=== PATIENT | female | born 1965 | race Caucasian/White ===

== ENCOUNTER 2018-08-21 01:44 | Observation (INO) ==
[2018-08-21] MEDS ORDERED: ONDANSETRON 4 MG/2 ML VIAL IV ONE ×2 (01:52→14:30)
[2018-08-21] MEDS ORDERED: ASPIRIN 81 MG TAB.CHEW CHEWED ONE (01:52)
[2018-08-21] MEDS: NITROGLYCERIN 0.4 MG TAB.SUBL SL PRN ×2 (01:58→02:04)
[2018-08-21] MEDS ORDERED: PHENobarb/HYOSCY/ATROPINE/SCOP 1 DOSE BOTTLE PO ONE (02:20)
[2018-08-21] MEDS ORDERED: PANTOPRAZOLE 40 MG VIAL IV ONE (02:20)
[2018-08-21 02:38] LABS: Basophils # (Auto) 0.1 K/mcL (0.0-0.3); Eosinophils # (Auto) 0.6 K/mcL (0.0-0.7); Eosinophils % (Auto) 5.7 % (0.0-7.0); Granulocytes % (Auto) 42.4 % (38.0-78.0); Lymphocytes # (Auto) 4.2 K/mcL (1.5-4.8); Mean Cell Volume 91.1 fL (80.0-100.0); Mean Corpuscular HGB Conc 32.2 g/dL (31.0-36.0); Monocytes # (Auto) 0.9 K/mcL (0.1-0.9); Monocytes % (Auto) 8.9 % (1.0-12.0); Platelet Count 331 K/mcL (140-440); Red Cell Distribution Width 14.5 % (11.5-14.5)
[2018-08-21 02:55] LABS: ALT/SGPT 16 U/l (0-40); Albumin 4.3 gm/dL (3.2-5.2); Albumin/Globulin Ratio 1.7 (1.0-2.3); Alkaline Phosphatase 86 U/L (39-117); Blood Urea Nitrogen 14 mg/dl (6-20); Creatine Kinase 36 IU/L (24-170); Creatine Kinase MB 1.2 ng/ml (0-2.9); Myoglobin < 25 ng/ml (25-58)
--- NOTE | 2018-08-21 04:45 | XRay Report ---
INDICATION: Chest pain TECHNIQUE: AP chest x-ray,portable semiupright COMPARISON: Previous examination dated 03/09/2016 FINDINGS:Small left basilar parenchymal density consistent with atelectasis. Lungs are otherwise negative. No parenchymal infiltrate. No pulmonary parenchymal mass. Heart size and vascularity are normal. No pulmonary edema or pulmonary congestion. Alejandra and mediastinum are negative. No significant interval change IMPRESSION: 1. Negative AP portable chest x-ray 2. No significant interval change since 03/09/2016 Interpreted and Authenticated by: Lai Bañuelos 08/21/18
--- NOTE | 2018-08-21 06:34 | Emergency Department Note ---
General Adult HPI - General Chief complaint: Chest Pain Stated complaint: chest pain Time Seen by Provider: 08/21/18 02:15 Source: patient Mode of arrival: ambulatory Limitations: no limitations - History of Present Illness HPI Narrative: This patient was awakened during the night with epigastric pain that radiated a little bit up into the chest and into the back. Seem to be a sudden onset. She does still have her gallbladder and no history of cardiac disease. No shortness of breath slight nausea. - Related Data Home Medications Medication Instructions Recorded Confirmed aspirin 81 mg tablet,delayed 81 mg PO QDAY 08/13/15 08/21/18 release diatomaceous earth 1 tsp PO QDAY 08/13/15 09/21/17 cholecalciferol (vitamin D3) 2,000 2,000 unit PO QDAY cap 11/06/15 08/21/18 unit capsule B-complex with vitamin C capsule 1 cap PO QDAY 05/03/17 09/21/17 Magnesium Oxide [Magnesium] 250 mg PO DAILY 08/21/18 08/21/18 Potassium 99 mg PO DAILY 08/21/18 08/21/18 Previous Rx's Medication Instructions Recorded Bilateral carpal tunnel braces #1 each 08/13/15 lorazepam 1 mg tablet 1 mg PO BID PRN #30 tab 09/01/16 hydrocodone 5 mg-acetaminophen 325 1 tab PO BID PRN #60 tab 09/06/17 mg tablet epinephrine 0.3 mg/0.3 mL 0.3 mg IM Q10-15M PRN #2 each 09/21/17 injection, auto-injector rosuvastatin 5 mg tablet 5 mg PO QDAY #60 tab 09/21/17 Synthroid 125 mcg tablet 125 mcg PO QDAY #90 tab NS 10/06/17 omeprazole 20 mg capsule,delayed 20 mg PO QDAY #90 cap 12/26/17 release Allergies Allergy/AdvReac Type Severity Reaction Status Date / Time pecan nut Allergy Severe Anaphylaxis Verified 09/21/17 08:05 walnut Allergy Severe Anaphylaxis Verified 09/21/17 08:05 brazil nut Allergy Severe Anaphylaxis Uncoded 07/27/16 15:11 Review of Systems All systems ED: reviewed and negative except as stated. Past Medical History - Past Medical History Medical history: Reports: GERD, hypertension, thyroid disease, other (Spondylolisthesis) OUTSOLE CASER history: Reports: non-contributory Surgical history ED: Reports: , other (Low back surgery, ovarian cystectomy, bladder mesh repair) - Social History smoking status: Current every day smoker Alcohol use: Reports: None Drug use: Reports: none Physical Exam Limitations: no limitations General appearance: alert Head: atraumatic Eye: Present: normal appearance ENT: normal exam Neck: Present: normal inspection Chest: Present: normal inspection Respiratory: Present: normal lung sounds bilaterally Cardiovascular: Present: regular rate, normal rhythm, normal heart sounds Abdominal: Present: soft, tenderness. Absent: distention, guarding, rebound, rigidity Abdominal tenderness: Present: epigastrium, moderate Neurological: Present: alert Psychiatric: Present: normal affect Skin: Present: warm, dry Course Vital Signs Temperature 97.6 F 08/21/18 01:44 Pulse Rate 65 08/21/18 01:44 Respiratory Rate 24 H 08/21/18 01:44 Pulse Oximetry (%) 100 08/21/18 01:44 Temperature 97.6 F 08/21/18 01:44 Pulse Rate 63 08/21/18 06:46 Respiratory Rate 14 08/21/18 06:46 Blood Pressure 119/71 08/21/18 06:46 Pulse Oximetry (%) 98 08/21/18 06:46 Medical Decision Making - [facility] Narrative Medical decision making narrative: This patient's troponins were negative she does have cholecystitis on her ultrasound and will be admitted per Dr. Shukla. - Lab Data Lab results reviewed: Yes I reviewed the patient's lab results. Result diagrams: 08/21/18 01:59 08/21/18 01:59 Lab Results 08/21/18 08/21/18 08/21/18 Range/Units 01:59 01:59 01:59 WBC 10.0 (4.5-11.0) K/mcL RBC 4.90 (4.00-5.20) M/mcL Hgb 14.4 (12.0-15.0) g/dL Hct 44.6 (36.0-48.0) % MCV 91.1 (80.0-100.0) fL MCH 29.4 (26.0-34.0) pg MCHC 32.2 (31.0-36.0) g/dL RDW 14.5 (11.5-14.5) % Plt Count 331 (140-440) K/mcL MPV 7.9 (7.4-10.4) fL Gran % 42.4 (38.0-78.0) % Lymph % (Auto) 42.0 (15.5-49.0) % Meade % (Auto) 8.9 (1.0-12.0) % Eos % (Auto) 5.7 (0.0-7.0) % Baso % (Auto) 1.0 (0.0-2.0) % Gran # 4.2 (1.8-8.0) K/mcL Lymph # (Auto) 4.2 (1.5-4.8) K/mcL Meade # (Auto) 0.9 (0.1-0.9) K/mcL Eos # (Auto) 0.6 (0.0-0.7) K/mcL Baso # (Auto) 0.1 (0.0-0.3) K/mcL Sodium 142 (133-145) mmol/L Potassium 3.8 (3.3-5.1) mmol/L Chloride 104 (96-108) mmol/L Carbon Dioxide 26 (22-30) mmol/L Anion Gap 12.0 (8-16) BUN 14 (6-20) mg/dl Creatinine 0.7 (0.6-1.1) mg/dl GFR Calculation 98 Glucose 104 (70-105) mg/dL Calcium 9.2 (8.6-10.4) mg/dl Total Bilirubin 0.2 (0.0-1.0) mg/dL AST 14 (0-37) U/l ALT 16 (0-40) U/l Alkaline Phosphatase 86 (39-117) U/L Total Creatine Kinase 36 (24-170) IU/L CK-MB (CK-2) 1.2 (0-2.9) ng/ml Myoglobin < 25 L (25-58) ng/ml Troponin T < 0.01 (0-0.03) ng/ml Total Protein 6.9 (5.9-8.4) gm/dL Albumin 4.3 (3.2-5.2) gm/dL Globulin 2.6 (2.2-3.7) gm/dL Albumin/Globulin Ratio 1.7 (1.0-2.3) Lipase (7-60) U/L 08/21/18 08/21/18 08/21/18 Range/Units 01:59 02:00 04:20 WBC (4.5-11.0) K/mcL RBC (4.00-5.20) M/mcL Hgb (12.0-15.0) g/dL Hct (36.0-48.0) % MCV (80.0-100.0) fL MCH (26.0-34.0) pg MCHC (31.0-36.0) g/dL RDW (11.5-14.5) % Plt Count (140-440) K/mcL MPV (7.4-10.4) fL Gran % (38.0-78.0) % Lymph % (Auto) (15.5-49.0) % Meade % (Auto) (1.0-12.0) % Eos % (Auto) (0.0-7.0) % Baso % (Auto) (0.0-2.0) % Gran # (1.8-8.0) K/mcL Lymph # (Auto) (1.5-4.8) K/mcL Meade # (Auto) (0.1-0.9) K/mcL Eos # (Auto) (0.0-0.7) K/mcL Baso # (Auto) (0.0-0.3) K/mcL Sodium (133-145) mmol/L Potassium (3.3-5.1) mmol/L Chloride (96-108) mmol/L Carbon Dioxide (22-30) mmol/L Anion Gap (8-16) BUN (6-20) mg/dl Creatinine (0.6-1.1) mg/dl GFR Calculation Glucose (70-105) mg/dL Calcium (8.6-10.4) mg/dl Total Bilirubin (0.0-1.0) mg/dL AST (0-37) U/l ALT (0-40) U/l Alkaline Phosphatase (39-117) U/L Total Creatine Kinase (24-170) IU/L CK-MB (CK-2) 1.2 (0-2.9) ng/ml Myoglobin (25-58) ng/ml Troponin T < 0.01 (0-0.03) ng/ml Total Protein (5.9-8.4) gm/dL Albumin (3.2-5.2) gm/dL Globulin (2.2-3.7) gm/dL Albumin/Globulin Ratio (1.0-2.3) Lipase 69 H (7-60) U/L - Radiology Data Radiology results reviewed: Yes I reviewed the patient's radiology results. Disposition Pt seen by RAILROAD WHEELS AND AXLE INSPECTOR/PA only: No Clinical Impression: Cholecystitis Disposition: Xfer As Outpt/Obs ([facility]) Condition: Good Referrals: Shayne Vargas MD [Primary Care Provider] - Time of Disposition: 08:21
[2018-08-21] MEDS ORDERED: PIPERACILLIN SODIUM/TAZOBACTAM 3.375 GM in DEXTROSE 5% IN WATER 50 ML IV ONE (08:20)
[2018-08-21] MEDS ORDERED: LACTATED RINGERS 1,000 ML IV SCH (09:30)
--- NOTE | 2018-08-21 09:33 | Ultrasound Report ---
CLINICAL INFORMATION: elevated lipase and epi gastric pain COMPARISON: None. FINDINGS: Multiple stones within the gallbladder range up to 12 mm. The gallbladder wall is equivocally thickened: 3.1 mm. No focal tenderness of the gallbladder, however. Common bile duct is dilated: 9 mm. The distal CBD is not visualized, thus choledocholithiasis is not excluded.. Liver and pancreas are normal in size configuration and echotexture. No free fluid IMPRESSION: Cholelithiasis and mild gallbladder wall thickening suggesting cholecystitis. Mild dilatation of common bile duct is noted choledocholithiasis is possible: The distal CBD is not visualized Interpreted and Authenticated by: Lai Rosas 08/21/18
--- NOTE | 2018-08-21 12:22 | General Surg History&Physical ---
History of Present Illness Patient information: Note initiated : 08/21/18 at 12:20 pm Service Date, if different from initiated Date: [] Patient: Nisreen Contreras a 53 y/o F admitted on 08/21/18 for Chest Pain . Chief Complaint: [53-year-old female admitted with cholecystitis with cholelithiasis. The patient was awakened at midnight with severe mid substernal chest pain. She tried some [id number] remedies without improvement. The pain became worse and she was seen in the emergency room. Cardiac enzymes were negative and EKG was unremarkable. She had upper abdominal ultrasound, which shows gallstones and sludge. Her white blood count and liver panel were normal. Her pain was difficult to control, so she is admitted. She remains symptomatic and has persistent tenderness. Patient is counseled for laparoscopic cholecystectomy.] HPI: Ms. Contreras is a 53 year old F Review of Systems - Gastrointestinal abdominal pain, cramping, dyspepsia, nausea - Musculoskeletal back pain, myalgias Past History Past medical history: Mild depression with anxiety Hypothyroidism. Degenerative disc disease. Migraine headaches. Gastroesophageal reflux disease Past surgical history: Lumbar disc surgery with fusion 2014 2. Hysterectomy. Oophorectomy Past family history: Breast cancer. Diabetes mellitus. Hypertension. Coronary artery disease Past social history: Tobacco use one half pack per day. Frequent alcohol use. Denies drug use Medications and Allergies Home Medications Medication Instructions Recorded Confirmed Type Bilateral carpal tunnel braces #1 each 08/13/15 09/21/17 Rx aspirin 81 mg tablet,delayed 81 mg PO QDAY 08/13/15 08/21/18 History release diatomaceous earth 1 tsp PO QDAY 08/13/15 09/21/17 History cholecalciferol (vitamin D3) 2,000 2,000 unit PO QDAY cap 11/06/15 08/21/18 History unit capsule lorazepam 1 mg tablet 1 mg PO BID PRN #30 tab 09/01/16 08/21/18 Rx B-complex with vitamin C capsule 1 cap PO QDAY 05/03/17 09/21/17 History hydrocodone 5 mg-acetaminophen 325 1 tab PO BID PRN #60 tab 09/06/17 08/21/18 Rx mg tablet epinephrine 0.3 mg/0.3 mL 0.3 mg IM Q10-15M PRN #2 each 09/21/17 08/21/18 Rx injection, auto-injector rosuvastatin 5 mg tablet 5 mg PO QDAY #60 tab 09/21/17 08/21/18 Rx Synthroid 125 mcg tablet 125 mcg PO QDAY #90 tab NS 10/06/17 08/21/18 Rx omeprazole 20 mg capsule,delayed 20 mg PO QDAY #90 cap 12/26/17 08/21/18 Rx release Magnesium Oxide [Magnesium] 250 mg PO DAILY 08/21/18 08/21/18 History Potassium 99 mg PO DAILY 08/21/18 08/21/18 History Allergies Allergy/AdvReac Type Severity Reaction Status Date / Time pecan nut Allergy Severe Anaphylaxis Verified 09/21/17 08:05 walnut Allergy Severe Anaphylaxis Verified 09/21/17 08:05 brazil nut Allergy Severe Anaphylaxis Uncoded 07/27/16 15:11 Exam Temp Pulse Resp BP Pulse Ox 98.3 F 78 20 132/76 98 08/21/18 11:02 08/21/18 09:16 08/21/18 11:02 08/21/18 11:02 08/21/18 11:02 - General physical appearance well developed, well nourished, no distress - Eyes PERRL, normal ocular movement. negative: icteric - ENT normal pinna, normal nares, normal mucosa, no hearing loss, no congestion - Head Head exam IM: Present: atraumatic, normocephalic - Neck no masses, no bruits, trachea midline, no lymphadenopathy, no venous distension - Cardiovascular Cardiovascular exam IM: Present: normal rate and rhythm, RRR, +S1, +S2. Absent: gallop, JVD, tachycardia - Respiratory normal expansion, normal respiratory effort, clear to auscultation - Abdomen Abdomen: Present: soft, tender (epigastric and right upper quadrant tenderness), bowel sounds Hernia: Present: none - Genitourinary Present: normal external genitalia - Integumentary Present: no rash, no growths, no abnormal pigmentation - Neurologic Present: normal coordination, normal sensation - Musculoskeletal Present: normal gait, normal posture - Psychiatric Present: oriented to time, oriented to person, oriented to place, speech is normal, memory intact Assessment and Plan (1) Cholelithiasis with cholecystitis without obstruction Patient counseled for laparoscopic cholecystectomy. It will be performed later today Status: Acute (2) Depression Status: Acute (3) Migraine Status: Chronic (4) Herniated intervertebral disc Status: Chronic Comment: without myelopathy 4/5 and 5/6 (5) Acid reflux Status: Chronic Qualifiers: Esophagitis presence: esophagitis presence not specified Qualified Code(s): K21.9 - Gastro-esophageal reflux disease without esophagitis
[2018-08-21] MEDS ORDERED: PIPERACILLIN SODIUM/TAZOBACTAM 3.375 GM in DEXTROSE 5% IN WATER 50 ML IV SCH (13:00)
[2018-08-21] MEDS ORDERED: ROCURONIUM 10 MG/ML ML IV ONE (14:30)
[2018-08-21] MEDS ORDERED: fentaNYL 250 MCG/5 ML VIAL IV ONE (14:30)
[2018-08-21] MEDS ORDERED: LIDOCAINE HCL/PF 100 MG/5 ML SYRINGE IV ONE (14:30)
[2018-08-21] MEDS ORDERED: DEXAMETHASONE 10 MG/ML VIAL IV ONE (14:30)
[2018-08-21] MEDS ORDERED: MIDAZOLAM 5 MG/5 ML VIAL IV ONE (14:30)
[2018-08-21] MEDS ORDERED: PROPOFOL 200 MG/20 ML VIAL IV ONE (14:30)
[2018-08-21] MEDS ORDERED: SUCCINYLCHOLINE 20 MG/ML ML IV ONE (14:30)
[2018-08-21] MEDS ORDERED: METHOCARBAMOL 1,000 MG/10 ML VIAL IV PRN (14:56)
[2018-08-21] MEDS ORDERED: MEPERIDINE 25 MG/ML SYRINGE IV PRN (14:56)
[2018-08-21] MEDS ORDERED: ONDANSETRON 4 MG/2 ML VIAL IV PRN ×2 (14:56→16:25)
[2018-08-21] MEDS ORDERED: PROMETHAZINE 25 MG/ML VIAL IV PRN ×2 (14:56→16:25)
[2018-08-21] MEDS ORDERED: NALOXONE HCL 0.4 MG/ML VIAL IV PRN (14:56)
[2018-08-21] MEDS ORDERED: fentaNYL 100 MCG/2 ML VIAL IV PRN (14:56)
[2018-08-21] MEDS ORDERED: ATROPINE SULFATE 0.4 MG/ML VIAL IV PRN (14:56)
[2018-08-21] MEDS ORDERED: PROMETHAZINE 25 MG/ML VIAL IM PRN (14:56)
[2018-08-21] MEDS ORDERED: diphenhydrAMINE 50 MG/ML VIAL IV PRN (14:56)
[2018-08-21] MEDS ORDERED: IPRATROPIUM/ALBUTEROL 3 ML AMPUL.NEB NEB PRN (14:56)
[2018-08-21] MEDS ORDERED: MEPERIDINE 50 MG/ML INJECTION IM PRN (14:56)
[2018-08-21] MEDS ORDERED: FLUMAZENIL 0.1 MG/ML ML IV PRN (14:56)
[2018-08-21] MEDS ORDERED: METOPROLOL TARTRATE 5 MG/5 ML VIAL IV PRN (14:56)
[2018-08-21] MEDS ORDERED: ePHEDrine 50 MG/ML AMPUL IV PRN (14:56)
[2018-08-21] MEDS ORDERED: ACETAMINOPHEN 1,000 MG/100 ML BOTTLE IV ONE (14:56)
--- NOTE | 2018-08-21 15:41 | Brief Operative Note ---
Date of procedure: 08/21/18 Pre-op diagnosis: ACUTE CHOLECYSTITIS WITH CHOLELITHIASIS Post-op diagnosis: other (ACUTE CHOLECYSTITIS WITH CHOLELITHIASIS) Procedure: LAPAROSCOPIC CHOLECYSTECTOMY Grafts/Implants: No Anesthesia: GETA Findings: ACUTE SEVERE INFLAMMATION OF GALLBLADDER WITH OBSTRUCTION OF CYSTIC DUCT Complications: none Surgeon: Tiffany Shukla Estimated blood loss (cc): 30 Specimens Removed/Pathology: other (GALLBLADDER) Disposition: PACU
[2018-08-21] MEDS ORDERED: LORazepam 1 MG TABLET PO PRN (16:25)
[2018-08-21] MEDS: HYDROmorphone 2 MG/ML VIAL IV PRN ×3 (17:43→23:24)
[2018-08-21] MEDS: PIPERACILLIN SODIUM/TAZOBACTAM 3.375 GM in DEXTROSE 5% IN WATER 50 ML IV SCH ×2 (18:24→23:24)
[2018-08-21] MEDS: ACETAMINOPHEN 1,000 MG in PREMIX 1 BAG IV SCH (21:13)
[2018-08-21] MEDS: 0.9 % SODIUM CHLORIDE 10 ML SYRINGE IV SCH (21:20)
[2018-08-22] MEDS: HYDROmorphone 2 MG/ML VIAL IV PRN ×3 (03:43→11:46)
[2018-08-22] MEDS: ACETAMINOPHEN 1,000 MG in PREMIX 1 BAG IV SCH ×5 (03:43→16:04)
[2018-08-22] MEDS ORDERED: ACETAMINOPHEN 1,000 MG/100 ML BOTTLE IV ONE ×3 (03:45→15:59)
[2018-08-22] MEDS: 0.9 % SODIUM CHLORIDE 10 ML SYRINGE IV SCH ×2 (05:09→12:30)
[2018-08-22] MEDS: PIPERACILLIN SODIUM/TAZOBACTAM 3.375 GM in DEXTROSE 5% IN WATER 50 ML IV SCH ×2 (05:09→11:46)
[2018-08-22 05:35] LABS: Basophils # (Auto) 0 K/mcL (0.0-0.3); Basophils % (Auto) 0.4 % (0.0-2.0); Eosinophils # (Auto) 0 K/mcL (0.0-0.7); Eosinophils % (Auto) 0 % (0.0-7.0); Granulocytes % (Auto) 82.3 % (38.0-78.0); Lymphocytes # (Auto) 1.1 K/mcL (1.5-4.8); Lymphocytes % (Auto) 10.6 % (15.5-49.0); Mean Cell Volume 90.8 fL (80.0-100.0); Mean Corpuscular HGB Conc 32.8 g/dL (31.0-36.0); Monocytes # (Auto) 0.7 K/mcL (0.1-0.9); Monocytes % (Auto) 6.7 % (1.0-12.0); Platelet Count 249 K/mcL (140-440); RBC 4.18 M/mcL (4.00-5.20)
[2018-08-22 05:57] LABS: ALT/SGPT 291 U/l (0-40); Albumin 3.6 gm/dL (3.2-5.2); Albumin/Globulin Ratio 1.6 (1.0-2.3); Alkaline Phosphatase 115 U/L (39-117); Bilirubin,Direct < 0.2 mg/dL (0.0-0.3); Blood Urea Nitrogen 7 mg/dl (6-20); Gamma Glutamyl Transpeptidase 84 U/L (5-36); Uric Acid 2.1 mg/dL (2.5-8.0)
[2018-08-22] MEDS ORDERED: LEVOTHYROXINE 125 MCG TABLET PO SCH (07:30)
--- NOTE | 2018-08-22 13:03 | Surgical Pathology Report ---
HISTOLOGY SPECIMEN MICROSCOPIC DIAGNOSIS GALLBLADDER, CHOLECYSTECTOMY: -- SUBACUTE AND CHRONIC CHOLECYSTITIS WITH PATCHY LYMPHOID FOLLICLES. -- SINGLE BENIGN LYMPH NODE WITH MARKED REACTIVE CHANGE. (KYARA:danay) CLINICAL HISTORY Chest pain. PROCEDURAL IMPRESSION Cholecystitis; cholelithiasis. GROSS DESCRIPTION Received in formalin labeled gallbladder, is a 9.3 x 2.7 x 2.5 cm pink-allen gallbladder specimen. The majority of the serosa is smooth and glistening with approximately 35% roughened brown-allen. There is a single metal clamp present that is not on the cystic duct. The mucosa is velvety pink-allen to aguiar-allen and striated. The wall is up to 0.4 cm thick. There are multiple smooth surfaced green-black stones found within the gallbladder specimen ranging in size from less than 0.1 up to 2.1 cm in greatest dimension. On the cystic duct is a 1.0 x 0.8 x 0.6 cm red-allen possible lymph node. Pediatric Clinical Nurse Specialist sections of the gallbladder submitted in A1 with the proximal lymph node sectioned and totally submitted in cassette A2. (KGW:danay) Electronically Signed by: Scott Horton M.D.
--- NOTE | 2018-08-25 11:32 | Operative Note ---
DATE OF OPERATION: 08/21/2018 PREOPERATIVE DIAGNOSIS: Cholelithiasis with cholecystitis. POSTOPERATIVE DIAGNOSIS: Acute cholecystitis with cholelithiasis. PROCEDURE: Laparoscopic cholecystectomy. SURGEON: Tiffany Shukla MD. FINDINGS: Acute severe inflammation of the gallbladder with obstruction of the cystic duct by very large stone. DESCRIPTION OF PROCEDURE: Under general anesthesia, the patient's abdomen was prepped and draped in a sterile field. A timeout procedure was carried out as per protocol. Supraumbilical incision was made and Veress needle was inserted uneventfully. Abdomen was insufflated with 2 liters of CO2. A 12 mm port was placed. Laparoscope was placed. The patient was positioned in reverse Trendelenburg position and rotated to the left. Under videoscopic guidance, a 12 mm port and two 5 mm ports were placed in the right subcostal region. The gallbladder was tightly distended, extremely edematous and inflamed. It was decompressed with a Weck needle. The gallbladder was then grasped and positioned. Cystic duct and cystic artery were serially dissected at the infundibulum until definitively noted. Cystic duct was transected using an Endo MARIJA stapler. Cystic artery branch was dissected with four clips and divided on the wall of the gallbladder. The gallbladder was then from the infrahepatic space using electrocautery. The gallbladder was placed in an Endopouch and retrieved. Hemostasis was achieved with electrocautery. Further irrigation was carried out. It was felt that there was no need for a drain. CO2 was allowed to escape from the abdomen, and the ports were removed. Fascia at the umbilicus was closed with 0 Vicryl interrupted. Skin incisions were closed with cally. Incisions were covered with Tegaderm dressings. The patient tolerated the procedure well. She was awakened, extubated, and transferred to the postanesthetic care unit in stable, satisfactory condition. LCS:mark Job ID: [id number] Doc ID: [id number] Tiffany Shukla M.D.
== END 2018-08-22 16:56 | disposition home or self-care (01) ==
LOC: MEDSUR 01:44 → ED 01:44 → MEDSUR 09:11
PROVIDERS: ADMIT Family Medicine Adult Medicine; ATTEND Family Medicine Adult Medicine

== ENCOUNTER 2022-01-08 00:44 | Observation (INO) ==
[2022-01-08] MEDS ORDERED: IOPAMIDOL 100 ML BOTTLE IV ONE (00:45)
[2022-01-08] MEDS ORDERED: diphenhydrAMINE 50 MG/ML VIAL IV ONE (01:08)
[2022-01-08] MEDS ORDERED: METOCLOPRAMIDE 10 MG/2 ML VIAL IV ONE (01:08)
[2022-01-08] MEDS ORDERED: DICYCLOMINE 20 MG/2 ML VIAL IM ONE (01:08)
[2022-01-08 01:47] LABS: Basophils # (Auto) 0.05 K/mcL (0.00-0.30); Basophils % (Auto) 0.4 % (0.0-2.0); Eosinophils # (Auto) 0.06 K/mcL (0.00-0.70); Eosinophils % (Auto) 0.5 % (0.0-7.0); Hematocrit 44.1 % (34.1-44.9); Hemoglobin 14.5 g/dL (11.2-15.7); Lymphocytes # (Auto) 1.74 K/mcL (1.50-4.80); Lymphocytes % (Auto) 13.5 % (15.5-49.0); Mean Corpuscular HGB Conc 32.9 g/dL (31.0-36.0); Mean Platelet Volume 10.1 fL (8.8-12.5); Monocytes # (Auto) 0.82 K/mcL (0.10-0.90); Monocytes % (Auto) 6.4 % (1.0-12.0); Neutrophils % (Auto) 78.7 % (38.0-78.0); Platelet Count 323 K/mcL (140-440); RBC 5.19 M/mcL (3.59-5.38); Red Cell Distribution Width 11.9 % (11.5-14.5); WBC 12.9 K/mcL (4.5-11.0)
[2022-01-08 02:02] LABS: ALT/SGPT 49 U/L (<40); AST/SGOT 23 U/L (<32); Albumin 4.3 gm/dL (3.2-5.2); Albumin/Globulin Ratio 1.2 (1.0-2.3); Alkaline Phosphatase 178 U/L (39-117); Bilirubin,Total 0.4 mg/dL (0.1-1.0); Blood Urea Nitrogen 7 mg/dL (6-20); Calcium 9.4 mg/dL (8.6-10.4); Carbon Dioxide 24 mmol/L (22-30); Chloride 96 mmol/L (96-108); Globulin 3.6 gm/dL (2.2-3.7); Glomerular Filtration Rate 101; Glucose 141 mg/dL (70-105)
[2022-01-08] MEDS ORDERED: morphine 2 MG/ML VIAL IV ONE (03:12)
[2022-01-08] MEDS ORDERED: ACETAMINOPHEN 1,000 MG/100 ML BAG IV ONE (03:46)
[2022-01-08] MEDS ORDERED: PIPERACILLIN SODIUM/TAZOBACTAM 4.5 GM in DEXTROSE 5% IN WATER 50 ML IV SCH (05:30)
[2022-01-08] MEDS ORDERED: morphine 4 MG/ML VIAL IV ONE (05:30)
[2022-01-08] MEDS ORDERED: morphine 2 MG/ML VIAL IV PRN (05:35)
[2022-01-08] MEDS ORDERED: NALOXONE HCL 0.4 MG/ML VIAL IV PRN (05:35)
[2022-01-08] MEDS ORDERED: ONDANSETRON 4 MG/2 ML VIAL IV PRN (05:35)
--- NOTE | 2022-01-08 05:44 | Cat Scan Report ---
INDICATION: worsening RLQ pain COMPARISON: None. TECHNIQUE: Axial images were obtained through the abdomen and pelvis. Sagittally and coronally reformatted images. 80 mL Isovue 370 injected intravenously. Patient gives a history of contrast allergy and started prior to this procedure. There were no complications FINDINGS: Lung bases:Negative. No pulmonary parenchymal nodule. No pleural fluid or pericardial fluid Liver:Negative. No focal intrahepatic mass. No focal abnormality. Liver contour is smooth. No evidence for cirrhosis Gallbladder, bilary:Previous cholecystectomy. Common bile duct is dilated to approximately 8 mm maximally. No intrahepatic bile duct dilatation. No detectable choledocholithiasis. Spleen:No splenomegaly. Normal enhancement of splenic and portal veins. Pancreas:No pancreatic mass. No peripancreatic abnormality Adrenal glands:Negative Kidneys,ureters,bladder:4 mm low-density abnormality in the upper pole the right kidney is probably benign. This is too small to accurately characterize. There is a 7 mm left midpole renal cyst.. Kidneys are otherwise negative. No obstructing or nonobstructing calculi. No hydronephrosis. No hydroureter. No ureteral calculus. No bladder stone. No detectable bladder mass. Gastrointestinal:No detectable colonic mass. There is no diverticulitis. There is mild sigmoid diverticulosis Negative small bowel. No mechanical small bowel obstruction. No bowel wall thickening. No focal abnormality. Negative stomach and duodenum. No focal abnormality. Appendix: The appendix is abnormal. There is generalized appendiceal distention with a maximum cross-sectional diameter of approximately 15 mm. There is mild periappendiceal stranding. Appearance is consistent with acute appendicitis. There is no focal abscess. There is no appendicolith. No CT evidence for perforation. Vascular:Negative abdominal aorta. Superior mesenteric artery and celiac trunk are normal. Normal opacification of the inferior mesenteric artery Lymphatic:No retroperitoneal or mesenteric adenopathy Mesentery, peritoneum: No free intraperitoneal fluid. No mesenteric or retroperitoneal mass. No intra-abdominal abscess. Reproductive:Previous hysterectomy. There is no adnexal mass. Musculoskeletal:Previous L5-S1 spinal fusion. No compression fractures. No lytic lesions. Sacrum, pelvis, hips are negative No abdominal wall or inguinal hernia IMPRESSION: 1. Acute appendicitis. No periappendiceal abscess. No CT evidence for ruptured appendix 2. Previous cholecystectomy. 3. Mild colonic diverticulosis. No diverticulitis 4. Renal cysts 5. Previous posterior spinal fusion at L5-S1 6. Previous hysterectomy 7. History of contrast allergy. Benadryl was given and there were no complications The exam was performed using radiation dose optimization techniques including, but not limited to, automated exposure control, adjustment of the mA and/or kV according to patient size and use of iterative reconstruction technique. Interpreted and Authenticated by: Lai Bañuelos 01/08/22
[2022-01-08] MEDS ORDERED: LACTATED RINGERS 1,000 ML IV SCH (05:45)
--- NOTE | 2022-01-08 05:47 | Emergency Department Note ---
Abdominal Pain HPI General Chief Complaint: Abdominal Pain Stated Complaint: Lower midline ABD pain Time Seen by Provider: 01/08/22 01:01 Source: patient Mode of arrival: ambulatory Limitations: no limitations History of Present Illness HPI Narrative: Narrative: 56-year-old female history of Graves' disease, GERD presenting to the ED with less than 1 day of mid abdominal pain. Associated with nausea but no vomiting, no stool changes no genitourinary symptoms. No similar history in the past. Has been constant and mildly progressive since start. It is described as midline/suprapubic pain nonradiating. No fever no chills. Reports a history of and cholecystectomy but still has her appendix. No history of diverticulitis/colitis etc. No other complaints. Of note patient is recovering from COVID for about the past week Related Data Home Medications Medication Instructions Recorded Confirmed levothyroxine 137 mcg tablet 137 mcg PO QDAY 06/29/21 01/04/22 ascorbic acid (vitamin C) 500 mg mg PO 01/01/22 01/04/22 capsule aspirin 81 mg tablet,delayed 81 mg PO QDAY 01/01/22 01/04/22 release biotin 5 mg capsule 5 mg PO QDAY 01/01/22 01/04/22 cholecalciferol (vitamin D3) 50 5,000 unit PO QDAY 01/01/22 01/04/22 mcg (2,000 unit) capsule omeprazole 20 mg capsule,delayed 40 mg PO QDAY 01/01/22 01/04/22 release phentermine PO 01/01/22 01/04/22 topiramate 25 mg tablet 25 mg PO QDAY 01/01/22 01/04/22 vitamin b6 complex PO 01/01/22 01/04/22 Previous Rx's Medication Instructions Recorded hydrocodone 5 mg-acetaminophen 325 1 tab PO BID PRN pain #60 tabs 09/06/17 mg tablet epinephrine 0.3 mg/0.3 mL 0.3 mg (0.3 mL) IM Q10-15M PRN 09/21/17 injection, auto-injector (EpiPen anaphylaxis #2 ea 2-Jake) nirmatrelvir 300 mg (150 mg See Rx Instructions PO .COMPLEX 01/04/22 x2)-ritonavir 100 mg tablet,dose #30 tabs pack(EUA) (Paxlovid) Allergies Allergy/AdvReac Type Severity Reaction Status Date / Time pecan nut Allergy Severe Anaphylaxis Verified 01/08/22 00:48 walnut Allergy Severe Anaphylaxis Verified 01/08/22 00:48 codeine Allergy Unknown Fatigued Verified 01/08/22 00:48 Iodinated Contrast Media Allergy Unknown HIVES Verified 01/08/22 00:48 AFTER IPC PROCEDURE.TOPICAL OKAY brazil nut Allergy Severe Anaphylaxis Uncoded 01/04/22 16:26 NSAIDS and Salicylates Allergy Unknown Adverse Uncoded 01/04/22 16:26 Review of Systems ROS ROS Narrative: Narrative: All systems ED: reviewed and negative except as stated. [facility] Narrative Patient History Narrative: Narrative: Medical/Surgical/Family History All Active Problems Acute appendicitis (Acute) Other low back pain (Chronic) Sacroiliitis (Chronic) Radiculopathy, cervical region (Acute) DJD (degenerative joint disease) (Acute) Chronic SI joint pain (Acute) Hypertension (Chronic) Sacroiliitis, not elsewhere classified (Chronic) Spondylosis without myelopathy or radiculopathy, lumbar region (Chronic) Insomnia due to other mental disorder (Acute) Anxiety disorder, unspecified (Acute) Panic disorder (Chronic) Major depressive disorder, recurrent (Acute) PTSD (post-traumatic stress disorder) (Chronic) Chronic back pain (Chronic) Anxiety (Chronic) Depressive disorder (Chronic) Atrial septal defect (Chronic) GERD (gastroesophageal reflux disease) (Chronic) Hyperlipidemia (Chronic ~03/14/18) Hypothyroidism (Chronic ~03/14/18) Cholecystitis (Acute) Depression (Acute) Sinusitis (Acute) Influenza (Acute) Bronchitis (Acute) Hypovitaminosis D (Acute) Anxiety (Chronic) Hyperlipidemia (Chronic) ASD (atrial septal defect) (Acute) Hypothyroidism (acquired) (Acute) History of tobacco use (Chronic) Spondylolisthesis (Chronic) Migraine (Chronic) Herniated intervertebral disc (Chronic) Graves disease (Chronic) Degeneration, intervertebral disc, cervical (Chronic) Carpal tunnel syndrome (Chronic) Acid reflux (Chronic) Medical History Acid reflux Anxiety Atrial septal defect Carpal tunnel syndrome (04/18/14-Dr De Oliveira) Chronic back pain Chronic SI joint pain Cobalamin deficiency (~03/14/18) Degeneration, intervertebral disc, cervical (04/18/14-Dr De Oliveira) Depressive disorder DJD (degenerative joint disease) GERD (gastroesophageal reflux disease) Graves disease Herniated intervertebral disc without myelopathy 4/5 and 5/6 History of tobacco use Hyperlipidemia (~03/14/18) Hypertension Hypothyroidism (~03/14/18) Low back pain Migraine Other low back pain Sacroiliitis, not elsewhere classified Spondylolisthesis Spondylosis without myelopathy or radiculopathy, lumbar region Vitamin D deficiency (~03/14/18) Surgical History History of back surgery (02/13/14) History of section 1985, 1993 History of esophagogastroduodenoscopy (05/21/11) History of hysterectomy 2008 History of laparoscopic cholecystectomy 08/21/2018 History of ovarian cystectomy 1993 Right History of surgery RFTC Bilat L2-5 w/sed 05/21/19 MBB #2 Nishant. L2-5 w/sed 05/08/2019 MBB #1 Nishant. L3-5 w/sed 04/30/2019 SI Joint Injection Nishant. w/sed 01/08/19 SI Joint Injection, bilat w/sed 06/15/18 TF NICOLE #1 Bilat L5-S1 w/o sed 01/15/2014 LESI #1 L5-S1 Right Directed w/out sed 04-16-13 Pars defect injection on right side L5-S1 04-16-13 Family History Grandmother Malignant neoplasm of breast Maternal Diabetes mellitus Mother Arthritis Essential hypertension Alcohol use Father Myocardial Infarction Alcohol use Sister Paranoid schizophrenia PTSD (post-traumatic stress disorder) Son ADHD (attention deficit hyperactivity disorder) Learning disorder Social History Smoking Status: Former smoker Alcohol Intake Frequency: a few times a month Substance Use: does not use Exam Narrative Narrative: Narrative: Constitutional: normally developed, no acute distress . Head: Normocephalic, atraumatic, Eyes: No Icterus, ENT: Moist mucus membranes, Neck: Supple, Cardiac: Normal heart sounds, palpable radial pulse Pulmonary: Normal respiratory effort. Breath sounds clear, no wheeze, rhonchi, rales, Gastrointestinal: Abdomen soft, non-distended, patient is tender in general low abdomen primarily in the suprapubic region no rebound or guarding Musculoskeletal: No gross deformities, well perfused Skin: warm, dry Neuro: Alert . General Limitations: no limitations Course Vital Signs Vital signs: Vital Signs Temperature 36.2 C 01/08/22 00:44 Pulse Rate 78 01/08/22 00:44 Respiratory Rate 16 01/08/22 00:44 Pulse Oximetry (%) 99 01/08/22 00:44 Oxygen Delivery Method 01/08/22 00:44 Temperature 36.2 C 01/08/22 00:48 Pulse Rate 77 01/08/22 05:15 Respiratory Rate 16 01/08/22 00:48 Blood Pressure 118/79 01/08/22 05:15 Pulse Oximetry (%) 94 01/08/22 05:15 Oxygen Delivery Method 01/08/22 00:48 MDM MDM Narrative Medical decision making narrative: Narrative: Patient has several hours of midline/suprapubic abdominal pain and nausea work-up is initiated mildly tender in her lower abdomen no rebound or guarding [id number] urine negative for infection and blood CBC leukocytosis 12.9 electrolytes no significant abnormalities other than slightly elevated ALT although this appears chronic and improved from baseline Reevaluation pain improved with symptomatic management here, repeat abdominal exam however is becoming more focally tender in the right lower quadrant, neg ative Rovsing Will obtain CT scan primarily out of concern for appendicitis CT per direct radiology shows acute appendicitis no perforation or abscess, prominent liver 16 cm Presentation consistent with acute appendicitis. Patient is given a dose of Zosyn, says last time she ate or drank was sometime around midnight. Have consulted with Dr. Bai, surgeon, who agrees to accept patient for adm ission and treatment. Patient is updated with diagnosis and plan and is very agreeable Lab Data Result diagrams: 01/08/22 01:01 01/08/22 01:01 Labs: Lab Results 01/08/22 01/08/22 Range/Units 01:01 01:01 WBC 12.9 H (4.5-11.0) K/mcL RBC 5.19 (3.59-5.38) M/mcL Hgb 14.5 (11.2-15.7) g/dL Hct 44.1 (34.1-44.9) % MCV 85.0 (80.0-100.0) fL MCH 27.9 (26.0-34.0) pg MCHC 32.9 (31.0-36.0) g/dL RDW 11.9 (11.5-14.5) % Plt Count 323 (140-440) K/mcL MPV 10.1 (8.8-12.5) fL Immature Gran % (Auto) 0.5 (0.0-0.5) % Neut % (Auto) 78.7 H (38.0-78.0) % Lymph % (Auto) 13.5 L (15.5-49.0) % [place] % (Auto) 6.4 (1.0-12.0) % Eos % (Auto) 0.5 (0.0-7.0) % Baso % (Auto) 0.4 (0.0-2.0) % Lymph # (Auto) 1.74 (1.50-4.80) K/mcL [place] # (Auto) 0.82 (0.10-0.90) K/mcL Eos # (Auto) 0.06 (0.00-0.70) K/mcL Baso # (Auto) 0.05 (0.00-0.30) K/mcL Immature Gran # 0.06 H (0.00-0.05) K/mcl Absolute Neutrophils 10.15 H (1.80-8.00) K/mcL Sodium 134 (133-145) mmol/L Potassium 4.0 (3.3-5.1) mmol/L Chloride 96 (96-108) mmol/L Carbon Dioxide 24 (22-30) mmol/L Anion Gap 14.0 (8.0-16.0) BUN 7 (6-20) mg/dL Creatinine 0.6 (0.6-1.1) mg/dL GFR Calculation 101 Glucose 141 H (70-105) mg/dL Calcium 9.4 (8.6-10.4) mg/dL Total Bilirubin 0.4 (0.1-1.0) mg/dL AST 23 (<32) U/L ALT 49 H (<40) U/L Alkaline Phosphatase 178 H (39-117) U/L Total Protein 7.9 (5.9-8.4) gm/dL Albumin 4.3 (3.2-5.2) gm/dL Globulin 3.6 (2.2-3.7) gm/dL Albumin/Globulin Ratio 1.2 (1.0-2.3) Lipase 22 (7-60) U/L Discharge Plan Patient/Caregiver Discharge Instructions Pt seen by INSTALLER/PA only: No Clinical Impression: Acute appendicitis Patient Disposition: Xfer As Inpt ([facility]) Condition: Fair Follow up with: Kena Kaur FNP [Primary Care Provider] - Prescriptions: No Action hydrocodone-acetaminophen 5-325 mg tablet 1 tab PO BID PRN (Reason: pain) Qty: 60 0RF cholecalciferol (vitamin D3) 50 mcg (2,000 unit) capsule 5,000 unit PO QDAY epinephrine [EpiPen 2-Jake] 0.3 mg/0.3 mL auto-injector 0.3 mg IM Q10-15M PRN (Reason: anaphylaxis) Qty: 2 3RF Rx Instructions: until response levothyroxine 137 mcg tablet 137 mcg PO QDAY Paxlovid (EUA) 300 mg (150 mg x 2)-100 mg tablets,dose pack See Rx Instructions PO .COMPLEX Qty: 30 0RF Rx Instructions: take TWO 150 mg tablets of nirmatrelvir with ONE 100 mg tablet of ritonavir twice daily for 5 days PO phentermine PO topiramate 25 mg tablet 25 mg PO QDAY ascorbic acid (vitamin C) 500 mg capsule PO vitamin b6 complex PO biotin 5 mg capsule 5 mg PO QDAY aspirin 81 mg tablet,delayed release (DR/EC) 81 mg PO QDAY omeprazole 20 mg capsule,delayed release(DR/EC) 40 mg PO QDAY
--- NOTE | 2022-01-08 06:13 | General Surg History&Physical ---
HPI History of Present Illness Patient information: Note initiated : 01/08/22 at 6:09 am Service Date, if different from initiated Date: [] Patient: Nisreen Contreras a 56 y/o F admitted on for Lower midline ABD pain. Chief Complaint: [] Chief complaint: Right lower quadrant abdominal pain History of present illness: Ms. Contreras is a 56 year old F who started having periumbilical pain yesterday, overnight the pain localized to the right lower quadrant, it was so uncomfortable that she was unable to sleep therefore she came to the emergency room. She denies any prior sort of pain that is similar to this pain. She has had prior cholecystectomy and ovarian cysts for which she is required surgery. She denies any fevers chills nausea or vomiting at this time. Review of Systems Review of systems: All systems are reviewed, negative other than above PFSH PFSH All Active Problems Acute appendicitis (Acute) Other low back pain (Chronic) Sacroiliitis (Chronic) Radiculopathy, cervical region (Acute) DJD (degenerative joint disease) (Acute) Chronic SI joint pain (Acute) Hypertension (Chronic) Sacroiliitis, not elsewhere classified (Chronic) Spondylosis without myelopathy or radiculopathy, lumbar region (Chronic) Insomnia due to other mental disorder (Acute) Anxiety disorder, unspecified (Acute) Panic disorder (Chronic) Major depressive disorder, recurrent (Acute) PTSD (post-traumatic stress disorder) (Chronic) Chronic back pain (Chronic) Anxiety (Chronic) Depressive disorder (Chronic) Atrial septal defect (Chronic) GERD (gastroesophageal reflux disease) (Chronic) Hyperlipidemia (Chronic ~03/14/18) Hypothyroidism (Chronic ~03/14/18) Cholecystitis (Acute) Depression (Acute) Sinusitis (Acute) Influenza (Acute) Bronchitis (Acute) Hypovitaminosis D (Acute) Anxiety (Chronic) Hyperlipidemia (Chronic) ASD (atrial septal defect) (Acute) Hypothyroidism (acquired) (Acute) History of tobacco use (Chronic) Spondylolisthesis (Chronic) Migraine (Chronic) Herniated intervertebral disc (Chronic) Graves disease (Chronic) Degeneration, intervertebral disc, cervical (Chronic) Carpal tunnel syndrome (Chronic) Acid reflux (Chronic) Medical History Acid reflux Anxiety Atrial septal defect Carpal tunnel syndrome (04/18/14-Dr De Oliveira) Chronic back pain Chronic SI joint pain Cobalamin deficiency (~03/14/18) Degeneration, intervertebral disc, cervical (04/18/14-Dr De Oliveira) Depressive disorder DJD (degenerative joint disease) GERD (gastroesophageal reflux disease) Graves disease Herniated intervertebral disc without myelopathy 07/14 and 08/14 History of tobacco use Hyperlipidemia (~03/14/18) Hypertension Hypothyroidism (~03/14/18) Low back pain Migraine Other low back pain Sacroiliitis, not elsewhere classified Spondylolisthesis Spondylosis without myelopathy or radiculopathy, lumbar region Vitamin D deficiency (~03/14/18) Surgical History History of back surgery (02/13/14) History of section 1985, 1993 History of esophagogastroduodenoscopy (05/21/11) History of hysterectomy 2008 History of laparoscopic cholecystectomy 08/21/2018 History of ovarian cystectomy 1992 Right History of surgery RFTC Bilat L2-5 w/sed 05/21/19 MBB #2 Nishant. L2-5 w/sed 05/08/2019 MBB #1 Nishant. L3-5 w/sed 04/30/2019 SI Joint Injection Nishant. w/sed 01/08/19 SI Joint Injection, bilat w/sed 06/15/18 TF NICOLE #1 Bilat L5-S1 w/o sed 01/15/2014 LESI #1 L5-S1 Right Directed w/out sed 04-16-13 Pars defect injection on right side L5-S1 04-16-13 Family History Grandmother Malignant neoplasm of breast Maternal Diabetes mellitus Mother Arthritis Essential hypertension Alcohol use Father Myocardial Infarction Alcohol use Sister Paranoid schizophrenia PTSD (post-traumatic stress disorder) Son ADHD (attention deficit hyperactivity disorder) Learning disorder Social History household members: family marital status: occupational status: employed occupation: [employer] smoking status: Former smoker pack-years: 7 smoking status stop date: 04/11/19 alcohol intake frequency: a few times a month substance use type: does not use MEDS/ALLERGIES Home Medications and Allergies Home Medications Medication Instructions Recorded Confirmed Type hydrocodone 5 mg-acetaminophen 325 1 tab PO BID PRN pain #60 tabs 09/06/17 01/04/22 Rx mg tablet epinephrine 0.3 mg/0.3 mL 0.3 mg (0.3 mL) IM Q10-15M PRN 09/21/17 01/04/22 Rx injection, auto-injector (EpiPen anaphylaxis #2 ea 2-Jake) levothyroxine 137 mcg tablet 137 mcg PO QDAY 06/29/21 01/04/22 History ascorbic acid (vitamin C) 500 mg mg PO 01/01/22 01/04/22 History capsule aspirin 81 mg tablet,delayed 81 mg PO QDAY 01/01/22 01/04/22 History release biotin 5 mg capsule 5 mg PO QDAY 01/01/22 01/04/22 History cholecalciferol (vitamin D3) 50 5,000 unit PO QDAY 01/01/22 01/04/22 History mcg (2,000 unit) capsule omeprazole 20 mg capsule,delayed 40 mg PO QDAY 01/01/22 01/04/22 History release phentermine PO 01/01/22 01/04/22 History topiramate 25 mg tablet 25 mg PO QDAY 01/01/22 01/04/22 History vitamin b6 complex PO 01/01/22 01/04/22 History nirmatrelvir 300 mg (150 mg See Rx Instructions PO .COMPLEX 01/04/22 01/04/22 Rx x2)-ritonavir 100 mg tablet,dose #30 tabs pack(EUA) (Paxlovid) Allergies Allergy/AdvReac Type Severity Reaction Status Date / Time pecan nut Allergy Severe Anaphylaxis Verified 01/08/22 00:48 walnut Allergy Severe Anaphylaxis Verified 01/08/22 00:48 codeine Allergy Unknown Fatigued Verified 01/08/22 00:48 Iodinated Contrast Media Allergy Unknown HIVES Verified 01/08/22 00:48 AFTER IPC PROCEDURE.TOPICAL OKAY brazil nut Allergy Severe Anaphylaxis Uncoded 01/04/22 16:26 NSAIDS and Salicylates Allergy Unknown Adverse Uncoded 01/04/22 16:26 Physical Examination Vital Signs Vital signs: Temp Pulse Resp BP Pulse Ox O2 Del Method 97.1 F 87 16 112/78 95 01/08/22 00:48 01/08/22 05:45 01/08/22 00:48 01/08/22 05:45 01/08/22 05:45 01/08/22 00:48 General physical appearance General physical exam: well developed, well nourished and no distress Eyes Eye exam: PERRL and normal ocular movement ENT ENT exam: normal pinna, normal nares, normal mucosa, no hearing loss and no congestion Head Head exam IM: Present atraumatic and normocephalic Neck Neck exam: no masses, no bruits, trachea midline, no lymphadenopathy and no venous distension Cardiovascular Cardiovascular exam IM: Present normal rate and rhythm Respiratory Respiratory exam: normal expansion, normal respiratory effort, clear to percussion and clear to auscultation Abdomen Abdomen: Present soft, tender (RLQ), bowel sounds and rebound; Absent masses, guarding, rigid or distended Hernia: Present none Genitourinary Genitourinary (Female): Present normal external genitalia Rectum Rectum: Present normal sphincter tone, no hemorrhoids, no tenderness, no masses and no bleeding Integumentary Integumentary: Present no rash, no growths and no abnormal pigmentation Neurologic Neurologic: Present normal coordination and normal sensation Musculoskeletal Musculoskeletal: Present normal gait and normal posture Psychiatric Psychiatric: Present oriented to time, oriented to person, oriented to place, speech is normal and memory intact Results Labs Result diagrams: 01/08/22 01:01 01/08/22 01:01 Labs: Abnormal lab results 01/08/22 01/08/22 Range/Units 01:01 01:01 WBC 12.9 H (4.5-11.0) K/mcL Neut % (Auto) 78.7 H (38.0-78.0) % Lymph % (Auto) 13.5 L (15.5-49.0) % Immature Gran # 0.06 H (0.00-0.05) K/mcl Absolute Neutrophils 10.15 H (1.80-8.00) K/mcL Glucose 141 H (70-105) mg/dL ALT 49 H (<40) U/L Alkaline Phosphatase 178 H (39-117) U/L Diabetes panel 01/08/22 Range/Units 01:01 Sodium 134 (133-145) mmol/L Potassium 4.0 (3.3-5.1) mmol/L Chloride 96 (96-108) mmol/L Carbon Dioxide 24 (22-30) mmol/L BUN 7 (6-20) mg/dL Creatinine 0.6 (0.6-1.1) mg/dL Glucose 141 H (70-105) mg/dL Calcium 9.4 (8.6-10.4) mg/dL AST 23 (<32) U/L ALT 49 H (<40) U/L Alkaline Phosphatase 178 H (39-117) U/L Total Protein 7.9 (5.9-8.4) gm/dL Albumin 4.3 (3.2-5.2) gm/dL Calcium panel 01/08/22 Range/Units 01:01 Calcium 9.4 (8.6-10.4) mg/dL Albumin 4.3 (3.2-5.2) gm/dL Pituitary panel 01/08/22 Range/Units 01:01 Sodium 134 (133-145) mmol/L Potassium 4.0 (3.3-5.1) mmol/L Chloride 96 (96-108) mmol/L Carbon Dioxide 24 (22-30) mmol/L BUN 7 (6-20) mg/dL Creatinine 0.6 (0.6-1.1) mg/dL Glucose 141 H (70-105) mg/dL Calcium 9.4 (8.6-10.4) mg/dL Adrenal panel 01/08/22 Range/Units 01:01 Sodium 134 (133-145) mmol/L Potassium 4.0 (3.3-5.1) mmol/L Chloride 96 (96-108) mmol/L Carbon Dioxide 24 (22-30) mmol/L BUN 7 (6-20) mg/dL Creatinine 0.6 (0.6-1.1) mg/dL Glucose 141 H (70-105) mg/dL Calcium 9.4 (8.6-10.4) mg/dL Total Bilirubin 0.4 (0.1-1.0) mg/dL AST 23 (<32) U/L ALT 49 H (<40) U/L Alkaline Phosphatase 178 H (39-117) U/L Total Protein 7.9 (5.9-8.4) gm/dL Albumin 4.3 (3.2-5.2) gm/dL All other labs normal. Imaging CT scan - abdomen: image reviewed A/P Assessment and plan (1) Acute appendicitis: Plan: This is a pleasant 56-year-old female who presents with signs symptoms most consistent with acute appendicitis. Risk, benefits, alternatives to conservative management versus operative intervention discussed with her at length. The details of operative intervention discussed with her at length including risks of the procedure. She verbalizes understanding, all of her questions answered and she desires to cont inue with surgical intervention. Plan: Laparoscopic appendectomy. Status: Acute Time Spent With Patient Time: Total time spent is greater than 50% in coordination of care (as documented) at patient's floor/unit and/or counseling patient:
[2022-01-08] MEDS: HYDROmorphone 0.5 MG/0.5 ML SYRINGE IV PRN ×4 (12:39→20:11)
[2022-01-08] MEDS: DEXTROSE 5%-1/2NS 1,000 ML IV SCH (13:42)
[2022-01-08] MEDS: PIPERACILLIN SODIUM/TAZOBACTAM 3.375 GM in DEXTROSE 5% IN WATER 50 ML IV SCH ×2 (13:42→18:45)
[2022-01-09] MEDS: HYDROmorphone 0.5 MG/0.5 ML SYRINGE IV PRN ×4 (00:10→08:09)
[2022-01-09] MEDS: PIPERACILLIN SODIUM/TAZOBACTAM 3.375 GM in DEXTROSE 5% IN WATER 50 ML IV SCH ×2 (00:10→06:10)
[2022-01-09] MEDS: DEXTROSE 5%-1/2NS 1,000 ML IV SCH ×2 (00:11→08:13)
[2022-01-09 07:20] LABS: Basophils # (Auto) 0.05 K/mcL (0.00-0.30); Basophils % (Auto) 0.4 % (0.0-2.0); Eosinophils # (Auto) 0.16 K/mcL (0.00-0.70); Eosinophils % (Auto) 1.4 % (0.0-7.0); Hematocrit 37.6 % (34.1-44.9); Hemoglobin 12.1 g/dL (11.2-15.7); Lymphocytes # (Auto) 1.58 K/mcL (1.50-4.80); Lymphocytes % (Auto) 13.6 % (15.5-49.0); Mean Cell Volume 87.4 fL (80.0-100.0); Mean Corpuscular HGB Conc 32.2 g/dL (31.0-36.0); Mean Platelet Volume 9.4 fL (8.8-12.5); Monocytes # (Auto) 1.05 K/mcL (0.10-0.90); Neutrophils % (Auto) 75.1 % (38.0-78.0); Platelet Count 310 K/mcL (140-440); WBC 11.7 K/mcL (4.5-11.0)
[2022-01-09 07:41] LABS: Blood Urea Nitrogen 5 mg/dL (6-20); Calcium 8.4 mg/dL (8.6-10.4); Carbon Dioxide 26 mmol/L (22-30); Chloride 96 mmol/L (96-108); Glomerular Filtration Rate 96; Glucose 111 mg/dL (70-105)
--- NOTE | 2022-01-09 08:45 | General Surgery Progress Note ---
SUBJECTIVE Subjective Patient information: Note initiated : 01/09/22 at 8:42 am Service Date, if different from initiated Date: [] Patient: Nisreen Contreras 56 y/o F admitted on 01/08/22 for Lower midline ABD pain. Chief Complaint: [] Principal diagnosis: Acute appendicitis Interval history: Hospital day #1 patient mated for medical management of acute appendicitis secondary to positive COVID infection. Patient is tolerating clear liquid diet overnight, she says her right lower quadrant pain is unchanged. She has no fevers chills nausea or vomiting at this time. Constitutional Vitals: Vital Signs Temp Pulse Resp BP Pulse Ox O2 Del Method 99.5 F H 91 H 16 102/67 92 01/09/22 07:33 01/09/22 04:00 01/09/22 07:33 01/09/22 07:33 01/09/22 07:33 01/09/22 07:33 Period Temp Pulse Resp BP Sys/Jeffrey Pulse Ox O2 Del Method O2 Flow Rate Last 24 Hr 98.2 F-99.5 F 70-91 16-20 97-143/67-85 92-100 Room Air-Room Air Intake and Output 01/08/22 01/09/22 01/09/22 21:59 05:59 13:59 Intake Total 1580 1770 1550 Output Total 400 950 350 Balance 8852 471 8032 Weight 201 lb 3.2 oz Intake & Output: Intake & Output 01/08/22 01/09/22 01/09/22 21:59 05:59 13:59 Intake Total 1580 1770 1550 Output Total 400 950 350 Balance 0170 336 1055 Weight 201 lb 3.2 oz Intake: IV 1100 1050 850 Dextrose 5%-1/2Ns IV Solution 1 1000 800 ,000 ml @ 100 mls/hr IV .Q10H YESSICA Rx#:[id number] Lactated Ringers 1,000 ml @ 100 1000 mls/hr IV .Q10H YESSICA Rx#: [id number] Zosyn 3.375 gm In Dextrose 5% 100 50 50 in Water 50 ml @ 100 mls/hr IV Q6H YESSICA Rx#:[id number] Oral 480 720 700 Output: Void Amount 400 950 350 Other: Urine Appearance Clear Clear Urine Color Dark Yellow Light Yue Bright Yellow Urine Odor Normal Normal General appearance: no acute distress GI/Abdominal GI/Abdominal exam: Present soft and tenderness (Mild tender to palpation in the right lower quadrant); Absent distended, guarding, mass or rebound A/P Assessment and plan (1) Acute appendicitis: Assessment and plan: Patient mated with acute appendicitis, medical management chosen secondary to the risks of anesthesia with COVID-positive patients. Hospital day #1 patient is doing well, white blood cell count decreased. Plan: Advance diet to regular as tolerated, changed to oral antibiotics, restart outpatient medications. Anticipate discharge tomorrow. Status: Acute Time Spent With Patient Time: Total time spent is greater than 50% in coordination of care (as documented) at patient's floor/unit and/or counseling patient:
[2022-01-09] MEDS: OMEPRAZOLE 20 MG CAPSULE PO SCH (09:45)
[2022-01-09] MEDS: VITAMIN D3 25 MCG TABLET PO SCH (09:45)
[2022-01-09] MEDS: ASPIRIN 81 MG TAB.CHEW PO SCH (09:46)
[2022-01-09] MEDS: ASCORBIC ACID 500 MG TABLET PO SCH (09:47)
[2022-01-09] MEDS: TOPIRAMATE 25 MG TABLET PO SCH (09:47)
--- NOTE | 2022-01-09 09:54 | EKG ---
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
[2022-01-09] MEDS ORDERED: PATIENTS OWN MEDICATION 1 DOSE MISCELL PO SCH (11:13)
[2022-01-09] MEDS ORDERED: oxyCODONE HCL 5 MG TABLET PO PRN (11:20)
[2022-01-09] MEDS ORDERED: ACETAMINOPHEN 325 MG TABLET PO PRN (11:20)
[2022-01-09] MEDS ORDERED: IBUPROFEN 600 MG TABLET PO PRN (11:20)
[2022-01-09] MEDS: ONDANSETRON 4 MG/2 ML VIAL IV PRN ×2 (11:32→17:45)
[2022-01-09] MEDS ORDERED: MAGNESIUM HYDROXIDE 30 ML ORAL.SUSP PO PRN (14:44)
[2022-01-09] MEDS: AMOXICILLIN/POTASSIUM CLAV 875 MG TABLET PO SCH (17:01)
[2022-01-09] MEDS ORDERED: HYDROcodone/APAP 5/325MG TABLET PO PRN (17:12)
[2022-01-09] MEDS: DOCUSATE SODIUM 100 MG CAPSULE PO SCH (20:02)
[2022-01-09] MEDS ORDERED: HYDROmorphone 0.5 MG/0.5 ML SYRINGE IV PRN (20:15)
[2022-01-09] MEDS: HYDROcodone/APAP 5/325MG TABLET PO PRN (20:32)
[2022-01-09] MEDS ORDERED: HYDROcodone/APAP 5/325MG TABLET PO ONE (20:40)
[2022-01-09] MEDS ORDERED: SENNOSIDES 1 TABLET PO SCH (21:00)
[2022-01-10] MEDS: HYDROcodone/APAP 5/325MG TABLET PO PRN ×3 (00:16→08:45)
[2022-01-10 07:50] LABS: Basophils # (Auto) 0.05 K/mcL (0.00-0.30); Basophils % (Auto) 0.7 % (0.0-2.0); Eosinophils # (Auto) 0.22 K/mcL (0.00-0.70); Hematocrit 35.7 % (34.1-44.9); Hemoglobin 11.4 g/dL (11.2-15.7); Lymphocytes # (Auto) 1.26 K/mcL (1.50-4.80); Mean Cell Volume 87.5 fL (80.0-100.0); Mean Corpuscular HGB Conc 31.9 g/dL (31.0-36.0); Mean Platelet Volume 9.4 fL (8.8-12.5); Monocytes # (Auto) 0.79 K/mcL (0.10-0.90); Monocytes % (Auto) 10.7 % (1.0-12.0); Neutrophils % (Auto) 67.7 % (38.0-78.0); Platelet Count 317 K/mcL (140-440); RBC 4.08 M/mcL (3.59-5.38); Red Cell Distribution Width 11.9 % (11.5-14.5); WBC 7.4 K/mcL (4.5-11.0)
[2022-01-10 08:14] LABS: Blood Urea Nitrogen 5 mg/dL (6-20); Calcium 8.7 mg/dL (8.6-10.4); Carbon Dioxide 30 mmol/L (22-30); Chloride 99 mmol/L (96-108); Glomerular Filtration Rate 101; Glucose 99 mg/dL (70-105)
[2022-01-10] MEDS: AMOXICILLIN/POTASSIUM CLAV 875 MG TABLET PO SCH (08:41)
[2022-01-10] MEDS: ASPIRIN 81 MG TAB.CHEW PO SCH (08:43)
[2022-01-10] MEDS: ASCORBIC ACID 500 MG TABLET PO SCH (08:43)
[2022-01-10] MEDS: VITAMIN D3 25 MCG TABLET PO SCH (08:44)
[2022-01-10] MEDS: DOCUSATE SODIUM 100 MG CAPSULE PO SCH (08:44)
[2022-01-10] MEDS: TOPIRAMATE 25 MG TABLET PO SCH (08:47)
[2022-01-10] MEDS: OMEPRAZOLE 20 MG CAPSULE PO SCH (08:47)
[2022-01-10] MEDS ORDERED: PYRIDOXINE 100 MG TABLET PO SCH (09:00)
--- NOTE | 2022-01-10 09:08 | Discharge Summary ---
Discharge Provider Provider IMPORTANT FOLLOW-UP INFORMATION FOR PCP: Patient information: Note initiated : 01/10/22 at 9:07 am Service Date, if different from initiated Date: [] Patient: Nisreen Contreras 56 y/o F admitted on 01/08/22 for Lower midline ABD pain. Chief Complaint: [] Date of admission: 01/08/22 12:45 Discharge date: 01/10/22 Primary care physician: BERNARDO Perez Consults: 01/08/22 Consult to Physician [CONS] Stat Comment: Consulting Provider: Ruperto Bai Reason For Exam: Physician to Consult COURSE Hospital Course Hospital course: Patient is admitted with acute appendicitis, decision was made for operative intervention however a COVID test was sent and she was COVID positive. Secondary to the increased risk of general anesthesia and COVID-positive patients with symptoms decision was made to switch to conservative management with antibiotics for appendicitis. Her white count has returned to normal, she is afebrile, tolerating a regular diet. She still has some right lower quadrant abdominal pain but all other symptoms are improving. Discharge diagnosis: Conservative management of acute appendicitis Time Spent with Patient Time attestation: Total time spent providing and/or coordinating discharge services: Time spent: Less than 30 minutes Physical Examination Vital Signs Vital signs: Temp Pulse Resp BP Pulse Ox O2 Del Method 97.4 F 83 16 117/70 97 01/10/22 07:24 01/10/22 07:24 01/10/22 07:24 01/10/22 07:24 01/10/22 07:24 01/10/22 07:24 Discharge Plan Patient/Caregiver Discharge Instructions Activity: increase activity as tolerated Diet: Regular Diet Activity Restrictions/Additional Instructions: Resume normal activity as tolerated. May resume showering as normal. Follow-up with me in 1 to 2 weeks. Prescriptions: New docusate sodium 100 mg Capsule 100 mg PO BID PRN (Reason: Constipation) Qty: 30 0RF amoxicillin-pot clavulanate 875-125 mg Tablet 875 mg PO BIDCC Qty: 16 0RF hydrocodone-acetaminophen 5-325 mg Tablet 1 tab PO Q4HP PRN (Reason: Per Pain Protocol) Qty: 10 0RF magnesium hydroxide 400 mg/5 mL Suspension 30 ml PO QID PRN (Reason: Constipation) Qty: 300 0RF ibuprofen 600 mg Tablet 600 mg PO QIDP PRN (Reason: Per Pain Protocol/Fever > 101) Qty: 90 0RF Continued hydrocodone-acetaminophen 5-325 mg tablet 1 tab PO BID PRN (Reason: pain) Qty: 60 0RF cholecalciferol (vitamin D3) 50 mcg (2,000 unit) capsule 5,000 unit PO QDAY epinephrine [EpiPen 2-Jake] 0.3 mg/0.3 mL auto-injector 0.3 mg IM Q10-15M PRN (Reason: anaphylaxis) Qty: 2 3RF Rx Instructions: until response levothyroxine 137 mcg tablet 137 mcg PO QDAY phentermine 37.5 mg PO DAILY topiramate 25 mg tablet 25 mg PO QDAY ascorbic acid (vitamin C) 500 mg capsule 500 mg PO DAILY vitamin b6 complex 1 caplet PO DAILY biotin 5 mg capsule 5 mg PO QDAY aspirin 81 mg tablet,delayed release (DR/EC) 81 mg PO QDAY omeprazole 20 mg capsule,delayed release(DR/EC) 40 mg PO QDAY Follow Up Plan Follow up with: Kena Kaur FNP [Primary Care Provider] - Patient Disposition: Home, Self-Care Prognosis: Fair Discharge Orders: Discharge Order (Routine); Ordered 01/10/22 Ordered By: Ruperto Bai Pending Pending Pending: Resuscitation Status Resuscitate (Full Code) Diet Regular Diet Start Sat Oct 0845 Hydrocodone Bitart/Acetaminophen (Hydrocodone/Apap 5/325mg Tablet) 1 - 2 tab PO Q4HP PRN; Protocol PRN Reason: Per Pain Protocol Last Admin: 01/10/22 08:45 Dose: 2 tab Documented By: Admin: 01/10/22 04:51 Dose: 2 tab Documented By: Admin: 01/10/22 00:16 Dose: 2 tab Documented By: Admin: 01/09/22 20:32 Dose: 2 tab Documented By: LOLIS Amoxicillin/Clavulanate Potassium (Amoxicillin/Potassium Clav 875 Mg Tablet) 875 mg PO BIDCC YESSICA; Protocol Last Admin: 01/10/22 08:41 Dose: 875 mg Documented By: Admin: 01/09/22 17:01 Dose: 875 mg Documented By: MILLICENT Ascorbic Acid (Ascorbic Acid 500 Mg Tablet) 500 mg PO DAILY [facility] Last Admin: 01/10/22 08:43 Dose: 500 mg Documented By: Admin: 01/09/22 09:47 Dose: 500 mg Documented By: MILLICENT Aspirin (Aspirin 81 Mg Tab.Chew) 81 mg PO QDAY [facility] Last Admin: 01/10/22 08:43 Dose: 81 mg Documented By: Admin: 01/09/22 09:46 Dose: 81 mg Documented By: MILLICENT Docusate Sodium (Docusate Sodium 100 Mg Capsule) 100 mg PO BID [facility] Last Admin: 01/10/22 08:44 Dose: 100 mg Documented By: Admin: 01/09/22 20:02 Dose: 100 mg Documented By: LOLIS Magnesium Hydroxide (Magnesium Hydroxide 30 Ml Oral.Susp) 30 ml PO DAILYP PRN PRN Reason: Constipation Last Admin: 01/09/22 17:44 Dose: 30 ml Documented By: MILLICENT Omeprazole (Omeprazole 20 Mg Capsule) 40 mg PO QDAY [facility] Last Admin: 01/10/22 08:47 Dose: 40 mg Documented By: Admin: 01/09/22 09:45 Dose: 40 mg Documented By: MILLICENT Ondansetron HCl (Ondansetron 4 Mg/2 Ml Vial) 4 mg IV Q6HP PRN PRN Reason: Nausea And Vomiting Last Admin: 01/09/22 17:45 Dose: 4 mg Documented By: Admin: 01/09/22 11:32 Dose: 4 mg Documented By: MILLICENT Biotin 5 Mg Capsule 1 dose PO QDAY [facility] Last Admin: 01/10/22 08:46 Dose: Not Given Documented By: MILLICENT Levothyroxine 137 (Mcg Tablet) 1 dose PO QDAY [facility] Last Admin: 01/10/22 08:45 Dose: 1 dose Documented By: Admin: 01/09/22 12:22 Dose: 1 dose Documented By: MILLICENT Pyridoxine HCl (Pyridoxine 100 Mg Tablet) 100 mg PO DAILY [facility] Last Admin: 01/10/22 08:47 Dose: 100 mg Documented By: MILLICENT Senna (Sennosides 1 Tablet) 2 tab PO HS [facility] Last Admin: 01/09/22 20:02 Dose: 2 tab Documented By: LOLIS Topiramate (Topiramate 25 Mg Tablet) 25 mg PO QDAY [facility] Last Admin: 01/10/22 08:47 Dose: Not Given Documented By: Admin: 01/09/22 09:47 Dose: Not Given Documented By: MILLICENT Vitamin D (Vitamin D3 25 Mcg Tablet) 50 mcg PO QDAY [facility] Last Admin: 01/10/22 08:44 Dose: 50 mcg Documented By: Admin: 01/09/22 09:45 Dose: 50 mcg Documented By: MILLICENT Shift Summary 01/10/22 02:24 Shift Summary by Lou Montenegro Primary Diagnosis: Acute appendicitis, COVID + Registration Status: OBS Pertinent Medical Dx/Issue(s): HTN, Anxiety, Depression, Asthma, Hysterectomy, Breast CA, Right lumpectomy, Migraines Skin/Wound Care: skin Intact Vital Signs with Trends: VSS O2, liter flow/saturations: RA Pain management (acute vs. chronic): Hydrocodone 1-2 tabs Q4, Dilaudid .5 mg Q2 Lab/Rad (abnormals, trends): In ED Neuro/Mental Status: A&O x4 Urinary Elimination Device: continent to bathroom Urinary output greater than 30mL/hr? yes Date of last BM: unknown Lines/Tubes: IV left FA - SL Activity: as tolerated Discharge Plan (needs, disposition, etc): TBD Called MD at start of shift to ask for increase in pain medications. Order was changed to norco 5 (1 - 2 tabs) q4 and diluadid .5 mg Q2. Educated patient about if taking IV pain meds, she won't be able to discharge tomorrow per MD. Up independently in room. VSS. Has concerns about D/C and also wanting to request additional scanning to ensure appendix will not rupture upon going home. Initialized on 01/10/22 02:24 - END OF NOTE
== END 2022-01-10 10:45 | disposition home or self-care (01) ==
LOC: MEDSUR 00:44 → ED 00:44 → MEDSUR 12:30
PROVIDERS: ADMIT Surgery; ATTEND Surgery